=== PATIENT | female | born 1965 ===

== ENCOUNTER 2018-01-23 09:32 | Emergency (ER) | payer OTHER ==
[~2018-01-23] VITALS: Ht 152.4 cm; Wt 52.2 kg
[2018-01-23] MEDS ORDERED: LEVAQUIN750 MG PO (13:36)
[2018-01-23] MEDS ORDERED: KETO10TA2 PO (13:36)
== END 2018-01-23 13:44 | disposition home or self-care (01) ==
LOC: ER 09:32
DX: S62.524A Nondisplaced fracture of distal phalanx of right thumb, initial encounter for closed fracture (principal); S61.021A Laceration with foreign body of right thumb without damage to nail, initial encounter; W23.1XXA Caught, crushed, jammed, or pinched between stationary objects, initial encounter; Y93.89 Activity, other specified; Y92.89 Other specified places as the place of occurrence of the external cause; Y99.8 Other external cause status